=== PATIENT | male | born 1990 | race Two or more races ===

== ENCOUNTER 2024-10-03 16:30 | Inpatient (IN) | payer MEDICAID ==
[~2024-10-03] VITALS: Ht 183.5 cm; Wt 184.2 kg
[2024-10-03 21:15] VITALS: BP 119/79; PULSE 96; RESP 18; TEMP 97.3; O2SAT 99
[2024-10-03] MEDS ORDERED: VALB40CA2 PO (22:44)
[2024-10-03] MEDS ORDERED: CARI1.5C PO (22:44)
[2024-10-03] MEDS ORDERED: magnesium hydroxide 30ml (MOM) UD suspension PO PRN (23:20)
[2024-10-03] MEDS ORDERED: mag hydrox/Alum hydrox/simeth 30ml oral suspension PO PRN (23:20)
[2024-10-04 03:51] VITALS: RESP 18; O2SAT 99
[2024-10-04 07:00] VITALS: RESP 16; O2SAT 99
[2024-10-04] MEDS: NICOTINE POLACRILEX 2 MG LOZENGE BC PRN ×2 (07:37→19:39)
[2024-10-04] MEDS: nicotine 21mg patch - 24 hr TD SCH (07:38)
[2024-10-04 08:00] VITALS: BP 134/78; PULSE 89; RESP 16; TEMP 98.4; O2SAT 99
[2024-10-04] MEDS ORDERED: CARIPRAZINE HYDROCHLORIDE 1.5 MG PO SCH (08:00)
[2024-10-04] MEDS: CARIPRAZINE HYDROCHLORIDE 1.5 MG PO ONE (09:05)
[2024-10-04] MEDS ORDERED: OLANZapine **IM** 10 mg inj. IM PRN (11:30)
[2024-10-04] MEDS: OLANZapine 5mg rapidly disint. tablet PO PRN (13:04)
[2024-10-04 15:36] VITALS: BP 134/78; PULSE 89; RESP 16; TEMP 98.4; O2SAT 99
--- NOTE | 2024-10-04 18:27 | HISTORY AND PHYSICAL-Residence ---
History & Physical Providers to CC Resident Creating Document: SANTOS ROBLES MD ~ History of Present Illness Reason for Admit\Complaint: Tics History of Present Illness Patient was a very poor historian. 34-year-old male with no significant past medical history is [facility] with chief complaint of new onset tics. The patient reported that he has been having involuntary and random movements throughout his body which has a started very recently. He denied any new medications and denies any recent history of fever, chills, headaches, nausea, vomiting. He denied any history of seizures or any neurological disorders. Allergies: Coded Allergies: No Known Allergies (Unverified , 10/03/24) Home Medications Home Medications Active Reported Ingrezza (Valbenazine Tosylate) 40 Mg Capsule 1 Cap PO DAILY 30 Days Vraylar (Cariprazine Hydrochloride) 1.5 Mg Capsule 1 Cap PO DAILY 30 Days Past Medical History Past Medical History Denied any significant medical history. Past Surgical History Surgical History Comment No significant surgical history Family History Family History: Patient reports no known family medical history. Past Social History Social History Comment Lives at home Denied smoking history Denies recreational drug use Denied alcohol use history. ROS ROS As stated above in the HPI, otherwise all systems are reviewed and negative. Exam Vitals: Vital Signs Date Time Temp Pulse Resp B/P (MAP) Pulse Ox O2 Delivery O2 Flow Rate FiO2 10/04/24 15:36 98.4 89 16 134/78 (96) 99 Room Air General: General: Awake and Alert, no acute distress. HEENT: Conjunctiva pink, Sclera clear, Mucus Membranes moist. Neck: Supple without masses and tenderness. Resp: Unlabored. Lungs clear to auscultation bilaterally. Heart: Regular Rate and rhythm, normal S1 and S2 without murmur, rub or gallop. Abdomen: Soft and non tender no organomegaly Extremities: No cyanosis,clubbing or edema. Skin: Warm and Dry. Neurology: Patient having involuntary movements, jerking of the head and bilateral upper extremity for brief moments (lasting secs) during conversation. No loss of consciousness or any other symptoms were noted. Advance Care Planning Advanced Care planning: N/A Additional Plan Tics Dystonia Management per Psychiatry. No acute medical complaints. Follow up with CBC and BMP. Disposition: Hospitalist team we will continue to monitor the patient during the course of his hospitalization as per protocol. Karl Estrada MD Internal Medicine Resident, PGY-3 Date of Service: Oct 04, 2024 Billing Provider: SANTOS ROBLES MD Common Visit Codes: [id number] INP/OBS CARE (MOD) PIOTRADDIE LEIVAKYLIE MENJIVAR, RES Oct 04, 2024 18:27 SANTOS ROBLES MD Oct 08, 2024 15:19
[2024-10-04 19:00] VITALS: RESP 18; O2SAT 97
[2024-10-04 20:00] VITALS: BP 135/76; PULSE 91; RESP 16; TEMP 98.7; O2SAT 96
[2024-10-04] MEDS: benztropine 1mg tablet PO SCH (20:12)
[2024-10-04] MEDS: OLANZapine 5mg rapidly disint. tablet PO SCH (20:14)
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
[2024-10-05 06:51] LABS: MEAN PLATELET VOLUME 8.2 FL (7.4-10.4); RED CELL DISTRIBUTION WIDTH 12.7 % (11.5-14.5)
[2024-10-05 07:00] VITALS: BP 131/82; PULSE 88; RESP 16; TEMP 98.1; O2SAT 99
[2024-10-05 07:27] LABS: CHOL/HDL RATIO 4.2 (0.00-4.99); CREATININE 0.92 MG/DL (0.60-1.10); LDL CHOLESTEROL 97 MG/DL (50-100); TOTAL CARBON DIOXIDE 26.3 MMOL/L (24-32); eCRCL 127 ML/MIN; eGFR > 90 ML/MIN
[2024-10-05 08:00] VITALS: RESP 14
--- NOTE | 2024-10-05 18:51 | PROGRESS NOTE ---
Progress Note Dictate Providers to CC ~ Antibiotic Ordered?: No Objective Vitals Vital Signs Date Time Temp Pulse Resp B/P (MAP) Pulse Ox O2 Delivery O2 Flow Rate FiO2 10/05/24 08:00 14 Room Air 10/05/24 07:00 98.1 88 131/82 (98) 99 Lab Results: 10/05/24 0634 10/05/24 0634 Problem\Assessment\Plan Problems/Diagnosis: (1) Cannabis abuse with psychotic disorder (2) Schizophrenia, acute Psychiatrist's Progress Note Notes FOLLOW UP Vishal Hernandez 33 M Date of : Admit date: 10/04/24 Current length of stay: 2 days HPI: admitted voluntarily for Tics and psychotic symptoms. On admission interview he denied that he has a mental health diagnosis. Tics/movent symptoms started returning 3 weeks ago (early September) at which time he started new mental health medication: Trazodone, Ingrezza, Vraylar. In 2024 he has additionally developed gambling addiction- has gone to the [employer] three times in 2024 and will spend his whole paycheck. Yesterday he shared that he thinks that he may have a porn/sex addiction. Recent psychotic symptoms appear to have worsened in the context of two incidences of THC use, in Mid august he smoked once and then he took a THC drink and his symptoms have been observably worsening since. No thoughts of suicide or self harm. Per fiance he is unable to care for himself, needs a time recorder caregiver to remind him to take his medication, bathe or eating- will have to be convinced by his mother or finance to do these basic tasks, per his fiance he hasnt been working because he cannot think clearly, he has been spending his time pacing around the apartment, smoking cigarettes, has been sleeping minimally, will wake up every hour to smoke cigarettes. He has been sharing with his fiance that the voices in his head have been trying to get to him and wont let him talk there will be moments when he is lucid. Monique that his current affect and tone of voice is not consistent with his typical presentation. When asked about other disorganized or other bizarre behavior he came to his fiance's work asking for the marijuana beverage that he left in the trunk of her car and he wouldnt leave the premises even when she asked him multiple times to leave and that she could get it for him tonight. He will yell at the voices in his head. But there has been no anger externalized towards others. He has shared with her that hear voices but then also will deny it. Moved to [place] 1 years ago, established mental health treatment this summer, had psychotic episode in spring 2023 admitted through [facility], was there for 4-5 days, (was on a hold for grave disability), psychotic symptoms improved with medication, was discharged on haloperidol, and benztropine. 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 Psychiatric History: Outpatient: Has been meeting with a therapist regularly through [facility] Inpatient: - [facility] 2023, [facility] in 2021 (both in context of psychosis) Suicide attempts: denies Self harm history: denies Violence Hx/Legal Hx: denies Substance use hx: marijuana use rare but precipitates acute psychotic symptoms, rare alcohol intake, nicotine daily Historical Psych Medications: Haloperidol, benztropine, clonidine, ingrezza, vraylar, trazodone, olanzapine- was prescribed outpatient up to 15 mg but at that dose didnt seem to improve symptoms, lamotrigine 100 mg- no clear benefit, clonidine, propranolol 10 mg Social Hx: Moved to [place] 1 years ago, His dad when he was 30 which was a huge loss. Family Hx: father addiction (lead to premature d/t medical comorbidities) Current Psychosocial Dynamics: Moved to [place] 1 years ago, lives with firoxann (been together for 12 years) and fiances brother, has had trouble consistently working. - Todays Assessment Per nursing staff slept 2 hours last night, was agreeable to taking HS olanzapine, has been requesting to leave the unit but is unable to articulate or develop a coherent plan to follow through. Observed staring blankly in the hallway, preoccupied and was not responsive when approached by staff. Staff estimates he had 5-6+ pitchers of water yesterday (up to 4800 ml) Interviewed monique: who observes he is closer to his baseline personality, she thinks he is still confused at times, still appears preoccupied. Today he states the tics have improved a little bit. Status: in the process of attaining 5150 Suicide/Self Harm Risk: low Violence Risk: low Elopement Risk: High Fall risk: low - Medications: Olanzapine 10 mg po QHS Trazodone 100 mg po qhs (not effective for sleep) Nicotine patch 21 mg TD Recent PRNS: Olanzapine 5 mg - last administered 10/05/24 at 0700 - Side Effects: concern that Tics have worsened in severity since starting medication. AIMs: 3-muscle spasms in neck (does not appear to be consistent with TD) Dystonic reaction: Cervical dystonia- muscle spasms in neck, he additionally reports a history of tics but these symptoms worsened in the context of restarting antipsychotic medication and a Vmat 2 inhibitor - Review of Psychiatric Symptoms: Mood: states he is feeling good Suicide/self-harm: denies Sleep: per nursing staff slept two hours, he states he slept good but it was only for two hours, he states there is no concern with his sleep pattern Appetite: states he ate breakfast, concern for over consumption of water Energy: adequate, states he is lazy in general Anxiety: denies anxiety Irritability: denies Homicidal/Anger: denies today Hallucinations/Paranoia: denies, states he is at his baseline level of thinking and the only concern he has for his mental health the tics Trauma symptoms: hx of trauma Symptoms related to substance withdrawal: nicotine patch has been effective for cigarettes - Mental Status Evaluation - General Appearance: wearing green hospital scrubs, adequate hygiene. Eye contact: consistent with social norms Demeanor: guarded, does not appear fully aware of their surroundings Orientation: to person, place, time, situation Speech: Appropriate rate/rhythm, poverty of speech Psychomotor Activity: tense, agitated at times, Abnormal Body Movements: Cervical dystonia Gait: steady Mood: good Affect: blunted Suicidality: denies suicidal ideation Homicidally: denies Thought content: paranoia Thought process: disorganized/poverty of thought Thought perceptions: no perceptual disorder reported Memory: possible impairment Attention:/preoccupied Insight: poor, is not accepting having a mental health problem that requires treatment Judgment: limited - Review of Physical Systems: Denies malaise, other flu like symptoms Denies falls, fatigue, weakness, confusion, dizziness, memory loss Denies tingling/numbness, tremor Denies SOB, chest pain, palpitations, fainting Denies nausea, diarrhea, constipation Denies chronic pain All other systems reviewed negative Current Medical Problems: none noted Medical History Allergies: No known allergies Cardiac HX: Denies TBI Hx: denies Seizure Hx: denies [place] Hx: denies - Suicidality: Ideation Treatment - Diagnoses Schizoaffective disorder r/o psychogenic polydipsia (PPD)-exceeding 3 liters daily r/o substance induce psychosis from cannabis use Cervical dystonia r/o Tic disorder - Assessment Vishal is a 33 male who presents for further evaluation and treatment of schizoaffective disorder, dystonia, has historically been diagnosed with schizoaffective disorder. He took olanzapine, trazodone and benadryl and still only attained approximately 2 hours of sleep last night. Will increase olanzapine to further target psychotic symptoms and sleep loss consistent with a manic presentation. Will increase benadryl to further address sleep. Will discontinue trazodone as it is an antidepressant which could be potentiating tk. Marijuana appears to be a vinson contributing factor for psychotic decompensation, previous hospitalizations appear to correlate with marijuana use. It appears that onset of psychotic symptoms did not correlate with substance use. Was minimally responsive to interview questions today due to the severity of his psychotic symptoms including suspiciousness, preoccupation and lack of attention, irritability and agitation around wanting to leave the unit, majority of information was attained through interviewing his fiance. Will increase cogentin as presentation today appears consistent with dystonia, he reported some improvement in movement disorder since starting cogentin yesterday, per history movement symptoms have worsened since starting vmat 2 inhibitor. Discussed benefit of a cnc cutting operator plan of transitioning to an antipsychotic medication that can be administered as an DAILY as he struggles to take medication consistently which could be contributing to his recurrent hospitalizations for psychosis. It may be worth considering augmenting with a mood stabilizer like depakote at if insomnia persists despite medication changes made today. - Safety risk: low risk of imminent self-harm, moderate risk of externalized violent behaviors due to severity of psychotic symptoms, high risk for elopement due to severity of psychotic symptoms Plan Start fluid restriction- no more than 4 pitchers of water a day (for a total fluid intake not to exceed 3200 ml) Increase olanzapine from 10 to 15 mg ODT qhs for primary treatment of schizoaffective disorder acute psychosis Continue olanzapine 5 mg ODT Q6 as needed for agitation/psychotic or manic symptoms (like insomnia) Continue olanzapine 5 mg IM Q8 as needed for acute agitation Increase benztropine 1 mg po BID for dystonia Consider augmenting with a mood stabilizer like depakote at HS if insomnia persists despite medication changes made today. 5150 hold for grave disability Discontinue Trazodone 100 mg po qhs (not effective for insomnia- could be potentiating manic symptoms) Continue Benadryl q6 for EPS or insomnia Continue Q15 min checks Continue Groups/Milieu Engagement Discharge Plan: Has an appointment with a psychiatrist in [facility] on October 26, Has a follow up with psych BENJAMÍN on October 09, Jigar Bynumzabeth vinson pulmonary care nurse, please contact for discharge or any other logistics Katarzynaroxann would like to be an advocate for him for any related court/legal situations. Spent approximately 90 minutes reviewing records and test results, assessing and treatment planning, completing care coordination and documenting the encounter. Discussed risks, including possible adverse effects, and benefits of treatment recommendations including no treatment. Voice recognition software may have been used to dictate this note. There may be errors due to use of such software. Reporting of serious errors is appreciated. CODING VISIT-PSYCHIATRY Date of Service: Oct 05, 2024 Billing Provider: MARISSA MAJOR DNP Psych Common Visit Codes: [id number] INP/OBS CARE(High) MARISSA MAJOR DNP Oct 05, 2024 18:51
[2024-10-05 19:00] VITALS: RESP 16; O2SAT 97
[2024-10-05 20:00] VITALS: BP 142/93; PULSE 96; RESP 16; TEMP 98.3; O2SAT 97
[2024-10-05] MEDS: benztropine 1mg tablet PO SCH (20:02)
[2024-10-05] MEDS: OLANZapine 5mg rapidly disint. tablet PO SCH (20:02)
[2024-10-06 07:00] VITALS: RESP 16; O2SAT 97
[2024-10-06] MEDS: NICOTINE POLACRILEX 2 MG LOZENGE BC PRN (07:41)
[2024-10-06 08:00] VITALS: BP 137/83; PULSE 100; RESP 16; TEMP 98.2; O2SAT 97
--- NOTE | 2024-10-06 08:46 | PROGRESS NOTE ---
Daily Progress Note Providers to CC No new complaint today, resting comfortably in the bed ~ Central Line/PICC still needed: No Comer-Non Protocol Comer Indications Met/Not Met: F/C Indications Not Met Antibiotic Timeout Antibiotic Ordered?: No MRSA Education MRSA Education Provided to pt: No Subjective As above Objective Vital Signs Date Time Temp Pulse Resp B/P (MAP) Pulse Ox O2 Delivery O2 Flow Rate FiO2 10/06/24 08:00 98.2 100 16 137/83 (101) 97 Room Air Vital signs, stable ,afebrile. Pulse Oximetry reflects adequate oxygenation. BMI is 26, weight 87 kg General: well developed, well nourished. Awake , alert, and oriented x4, resting comfortably in the bed, in no acute distress . Skin: Warm, dry, no pallor, no rash or petechiae. HEENT: Atraumatic, normocephalic, EOMI, anicteric sclera B; pink conjunctiva; PERRLA, normal oropharynx, moist oral and nasal mucosa. Tympanic membrane , nose , throat clear. Neck: Trachea midline. Supple, full range of motion, no JVD, bruit , hepatojugular reflex , lymphadenopathy or masses, or other lesions Cardiac: Regular rhythm, regular rate no murmurs, rubs, or gallops. Normal S1 and S2, no S3 noticed. PMI is normal. Respiratory: Equal breath sounds bilaterally, no tachypnea; lungs clear to auscultation bilaterally, no wheezing ,rub or rales, or crackles. Chest wall is symmetric and without deformity. No signs of trauma. Chest wall is nontender. No signs of respiratory distress. Resonance is normal upon percussion bilaterally. Gastrointestinal: Abdomen symmetric, non-distended, soft, non-tender, normal bowel sounds x4 quadrant, normoactive, no hepatosplenomegaly , no masses , no bruit, no flank pain bilaterally. No voluntary guarding, rebound, or rigidity. No tenderness to percussion. No pulsatile masses. Equal femoral pulses. No Ballard's sign or McBurney point tenderness. Back; no CVA tenderness bilaterally, no deformities. Neck and back are without deformity as well. No tenderness noted on palpation of the spinous processes. Spinous processes are midline. Cervical, thoracic, and lumbar paraspinal muscles are not tender and are without spasm. : normal external genitalia, without lesions, swelling, masses or tenderness. Musculoskeletal: Extremities, normal range of motion, non-tender, muscle strength 5/5 x 4. Negative Homans signs bilaterally on lower extremity. Distal pulses full symmetrical, no clubbing, cyanosis , edema. Neurological: Speech is clear, alert, and oriented x 4. No motor or sensory deficit, deep tendon reflexes normal, cerebellar intact. Cranial nerves II-XII intact. Psych: Alert and or appropriate, normal affect. Vascular: Good distal pulses, which are equal x4; capillary refill less than 2 seconds. Lymphatic, no lymphadenopathy. Result Diagram: 10/05/2434 10/05/2434 Problem\Assessment\Plan Assessment/ Plan Tics Dystonia Management per Psychiatry. CBC and BMP. , completed, reviewed. Disposition: Hospitalist team we will continue to monitor the patient during the course of his hospitalization as per protocol. Sepsis Screening Reassessment Date: Oct 06, 2024 Date of Service: Oct 06, 2024 Billing Provider: MARIAM ROME MD Common Visit Codes: [id number] INP/OBS CARE(LOW) MARIAM ROME MD Oct 06, 2024 08:46
--- NOTE | 2024-10-06 10:07 | PROGRESS NOTE ---
Progress Note Dictate Providers to CC ~ Central Line/PICC still needed: N\\A Antibiotic Ordered?: No MRSA Education MRSA Education Provided to pt: No Objective Vitals Vital Signs Date Time Temp Pulse Resp B/P (MAP) Pulse Ox O2 Delivery O2 Flow Rate FiO2 10/06/24 08:00 98.2 100 16 137/83 (101) 97 Room Air Lab Results: 10/05/24 0634 10/05/24 0634 Counseling Services Smoking & Tobacco Cessation: > 10 Minutes Psychiatrist's Progress Note Date of Service: Oct 06, 2024 Notes CHART REVIEW Arrived with jahaira from [place]. Voluntary status for work up on new dystonic reaction to meds. Assessment done but pt denies any mental health history or symptoms. He says he only has tics and seasonal asthma. His transfer paperwork does say he has schizotypal bipolar history, and dystonia related to new medications. For me, he denies any mental health history, any family history, any medications. Denies hallucinations, SI/HI, or depression. Says his only obsession is sex, and he is never triggered. Both Pt and jahairae report bizarre and dangerous behaviors. States he was admitted for Tics and per his fiance he has not been thinking clearly. States they gave him benadryl. Per Fiance and patient, they both report no concern for bizarre dangerous behaviors. Sometimes will have strong vocal tics in the context of his mind not letting him speak. The patient denies that he has a mental health diagnosis. At the end of the month on october 26 he has an appointment with a psychiatrist in [facility]. Used to been treated by a psychiatrist in [facility] in [place]. Moved to [place] 1 years ago and no mental health treatment, had some "episodes" in May 2023 lots of ED visit, then was admitted through [facility], was admitted June 2023 was there for 4-5 days, (was a three day hold minimum)- jahaira reports that the medication helped him maintain a mental clarity for a while- haloperidol, benztropine, and then clonidine also helped with the Tics. ASSESSMENT The patient was interviewed in observation room. The patient was actively ambulating in hallway after visitation. The patient endorses "okay." Despite the patient endorsing he is okay the patient appeared extremely anxious, agitated and irritable. The patient was noted having difficulty finding words and starting blurting random things out at intervals (oh shit, fuck). The patient is stable no acute distress noted. The patient presents as guarded,extremely anxious, agitated and irritable, and disengaged during session. Per staff report patient is medication compliant. Per staff report patient was elevated at start of shift but has since calmed himself down with PRNs and he seemed to escalate again during visitation with his girlfriend. Per staff report pt became extremely loud and disruptive to other patients and visitors, yelling "Shit!" and nearly constantly loudly coughing and clearing his throat. Pt was asked to leave the dining room. Pt was cooperative with leaving the dining room. Will continue daily assessment and adjusting treatment as needed. Closely monitor behavior and response to medication during hospitalization. Speech: Impoverished Eye Contact: Intense Motor Activity: Other (DYSTONIA) Affect: Other (Blunted) Mood: Anxious, Irritable Orientation Impairment: None Memory Impairment: None Attention: Distracted Hallucinations: None Other: None Suicidality: None Homicidality: None Delusions: Paraniod Behavior: Guarded, Agitated, Bizarre Insight: Poor Judgment: Poor Treatment Increase OLANZAPINE 20 MG P.O. Q.H.S.-primary treatment of schizoaffective disorder acute psychosis OLANZAPINE 5 MG P.O. Q.6 PRN-agitation/psychotic or manic symptoms (like insomnia) BENZTROPINE 1 MG P.O. B.I.D.-dystonia BENADRYL 50 MG P.O. Q.6 PRN HYDROXYZINE 50 MG P.O. Q.6 PRN Fluid restriction- no more than 4 pitchers of water a day (for a total fluid intake not to exceed 3200 ml) 5150 HOLD-DTS- Patient is unable to formulate a plan to safety due to the severity of their mental illness. We are still titrating medications to an effective dose while maintaining a therapeutic environment to prevent decompensation and readmission. Monitoring by Staff, Milieu, Group, and Individual counseling as needed -- According to the [place] Suicide Assessment the above named patient is on Q15 MINUTE CHECKS. Total time spent 55 minutes on REVIEW OF Clinical notes [X ] RN notes [X] PCT documentation [X] SW notes Labs [ X] Medications [X] Care trends/care activity [X] Vitals [X] DISCUSSION WITH photogravure press operator [X] Staff SW Treatment Team Voice recognition software may have been used to dictate this note. There may be errors due to use of such software. Reporting of serious errors is appreciated. Discharge UNSURE AT THIS TIME. DISCHARGE HOME ONCE STABLE. CODING VISIT-PSYCHIATRY Date of Service: Oct 06, 2024 Billing Provider: JOE BILLINGSLEY APRN Psych Common Visit Codes: [id number] INP/OBS CARE(Mod) JOE BILLINGSLEY APRN Oct 06, 2024 10:07
[2024-10-06 20:00] VITALS: BP 144/73; PULSE 111; RESP 16; TEMP 98.8; O2SAT 97
[2024-10-06] MEDS: OLANZapine 5mg rapidly disint. tablet PO SCH (20:13)
[2024-10-06 21:13] VITALS: BP 144/73; PULSE 111; RESP 16; TEMP 98.8; O2SAT 97
[2024-10-07 07:00] VITALS: RESP 18; O2SAT 98
[2024-10-07 08:00] VITALS: BP 133/71; PULSE 74; RESP 18; TEMP 97.6; O2SAT 98
[2024-10-07] MEDS: OLANZapine 5mg rapidly disint. tablet PO ONE (08:09)
--- NOTE | 2024-10-07 15:13 | PROGRESS NOTE ---
Progress Note Dictate Providers to CC ~ Central Line/PICC still needed: N\\A Antibiotic Ordered?: No MRSA Education MRSA Education Provided to pt: No Objective Vitals Vital Signs Date Time Temp Pulse Resp B/P (MAP) Pulse Ox O2 Delivery O2 Flow Rate FiO2 10/07/24 08:00 97.6 74 18 133/71 (91) 98 Room Air Lab Results: 10/05/24 0634 10/05/24 0634 Psychiatrist's Progress Note Date of Service: Oct 07, 2024 Notes CHART REVIEW Arrived with jahaira from [place]. Voluntary status for work up on new dystonic reaction to meds. Assessment done but pt denies any mental health history or symptoms. He says he only has tics and seasonal asthma. His transfer paperwork does say he has schizotypal bipolar history, and dystonia related to new medications. For me, he denies any mental health history, any family history, any medications. Denies hallucinations, SI/HI, or depression. Says his only obsession is sex, and he is never triggered. Both Pt and jahairae report bizarre and dangerous behaviors. States he was admitted for Tics and per his fiance he has not been thinking clearly. States they gave him benadryl. Per Fiance and patient, they both report no concern for bizarre dangerous behaviors. Sometimes will have strong vocal tics in the context of his mind not letting him speak. The patient denies that he has a mental health diagnosis. At the end of the month on october 26 he has an appointment with a psychiatrist in [facility]. Used to been treated by a psychiatrist in [facility] in [place]. Moved to [place] 1 years ago and no mental health treatment, had some "episodes" in May 2023 lots of ED visit, then was admitted through [facility], was admitted June 2023 was there for 4-5 days, (was a three day hold minimum)- jahaira reports that the medication helped him maintain a mental clarity for a while- haloperidol, benztropine, and then clonidine also helped with the Tics. ASSESSMENT The patient was interviewed in observation room. The patient was actively ambulating in hallway. The patient endorses "Okay." The patient endorses no worsening mental health symptoms. The patient endorses adequate sleep and food intake. The patient is stable no acute distress noted. The patient presents as less anxious, less agitated and less irritable, and engaged during session. Per staff report patient is medication compliant. Per staff report the occasionally yelling out shit shit fuck fuck. Will continue daily assessment and adjusting treatment as needed. Closely monitor behavior and response to medication during hospitalization. Appearnace: Other Speech: Impoverished Eye Contact: Other (INTERMITTENT) Motor Activity: Normal Affect: Constricted Orientation Impairment: None Memory Impairment: None Attention: Normal Hallucinations: None Other: None Suicidality: None Homicidality: None Delusions: None Behavior: Guarded Insight: Poor Judgment: Poor Treatment OLANZAPINE 20 MG P.O. Q.H.S.-primary treatment of schizoaffective disorder acute psychosis OLANZAPINE 5 MG P.O. Q.6 PRN-agitation/psychotic or manic symptoms (like insomnia) BENZTROPINE 1 MG P.O. B.I.D.-dystonia BENADRYL 50 MG P.O. Q.6 PRN HYDROXYZINE 50 MG P.O. Q.6 PRN Fluid restriction- no more than 4 pitchers of water a day (for a total fluid intake not to exceed 3200 ml) 5150 HOLD-DTS- Patient is unable to formulate a plan to safety due to the severity of their mental illness. We are still titrating medications to an effective dose while maintaining a therapeutic environment to prevent decompensation and readmission. Monitoring by Staff, Milieu, Group, and Individual counseling as needed -- According to the [place] Suicide Assessment the above named patient is on Q15 MINUTE CHECKS. Total time spent 30 minutes on REVIEW OF Clinical notes [X ] RN notes [X] PCT documentation [X] SW notes Labs [ X] Medications [X] Care trends/care activity [X] Vitals [X] DISCUSSION WITH maintenance pipefitter [X] Staff SW Treatment Team Voice recognition software may have been used to dictate this note. There may be errors due to use of such software. Reporting of serious errors is appreciated. Discharge UNSURE AT THIS TIME. DISCHARGE HOME ONCE STABLE. CODING VISIT-PSYCHIATRY Date of Service: Oct 07, 2024 Billing Provider: JOE BILLINGSLEY APRN Psych Common Visit Codes: [id number] INP/OBS CARE(Mod) JOE BILLINGSLEY APRN Oct 07, 2024 15:13
[2024-10-07] MEDS: benztropine 1mg tablet PO SCH (17:40)
[2024-10-07 19:00] VITALS: RESP 18; O2SAT 98
[2024-10-07 20:00] VITALS: BP 135/90; PULSE 115; RESP 18; TEMP 98.9; O2SAT 98
[2024-10-08 07:00] VITALS: RESP 16; O2SAT 98
[2024-10-08 08:00] VITALS: BP 124/86; PULSE 101; RESP 16; TEMP 98.9; O2SAT 98
--- NOTE | 2024-10-08 14:14 | PROGRESS NOTE ---
Daily Progress Note Providers to CC ~ new complaint today resting comfortably in the bed Central Line/PICC still needed: No Comer-Non Protocol Comer Indications Met/Not Met: F/C Indications Not Met Antibiotic Timeout Antibiotic Ordered?: No MRSA Education MRSA Education Provided to pt: No Subjective As above Objective Vital Signs Date Time Temp Pulse Resp B/P (MAP) Pulse Ox O2 Delivery O2 Flow Rate FiO2 10/08/24 08:00 98.9 101 16 124/86 (99) 98 Room Air Vital signs, stable ,afebrile. Pulse Oximetry reflects adequate oxygenation, tachycardic General: well developed, well nourished. Awake , alert, and oriented x4, resting comfortably in the bed, in no acute distress . Skin: Warm, dry, no pallor, no rash or petechiae. HEENT: Atraumatic, normocephalic, EOMI, anicteric sclera B; pink conjunctiva; PERRLA, normal oropharynx, moist oral and nasal mucosa. Tympanic membrane , nose , throat clear. Neck: Trachea midline. Supple, full range of motion, no JVD, bruit , hepatojugular reflex , lymphadenopathy or masses, or other lesions Cardiac: Tachycardic, Regular rhythm, no murmurs, rubs, or gallops. Normal S1 and S2, no S3 noticed. PMI is normal. Respiratory: Equal breath sounds bilaterally, no tachypnea; lungs clear to auscultation bilaterally, no wheezing ,rub or rales, or crackles. Chest wall is symmetric and without deformity. No signs of trauma. Chest wall is nontender. No signs of respiratory distress. Resonance is normal upon percussion bilaterally. Gastrointestinal: Abdomen symmetric, non-distended, soft, non-tender, normal bowel sounds x4 quadrant, normoactive, no hepatosplenomegaly , no masses , no bruit, no flank pain bilaterally. No voluntary guarding, rebound, or rigidity. No tenderness to percussion. No pulsatile masses. Equal femoral pulses. No Ballard's sign or McBurney point tenderness. Back; no CVA tenderness bilaterally, no deformities. Neck and back are without deformity as well. No tenderness noted on palpation of the spinous processes. Spinous processes are midline. Cervical, thoracic, and lumbar paraspinal muscles are not tender and are without spasm. : normal external genitalia, without lesions, swelling, masses or tenderness. Musculoskeletal: Extremities, normal range of motion, non-tender, muscle strength 5/5 x 4. Negative Homans signs bilaterally on lower extremity. Distal pulses full symmetrical, no clubbing, cyanosis , edema. Neurological: Speech is clear, alert, and oriented x 4. No motor or sensory deficit, deep tendon reflexes normal, cerebellar intact. Cranial nerves II-XII intact. Psych: Alert and or appropriate, normal affect. Vascular: Good distal pulses, which are equal x4; capillary refill less than 2 seconds. Lymphatic, no lymphadenopathy. Result Diagram: 10/05/2434 10/05/24633 Problem\Assessment\Plan Assessment/ Plan Tachyarrhythmia, EKG, echocardiography, additional lab work pending Tics Dystonia Management per Psychiatry. CBC and BMP. , completed, reviewed. Disposition: Hospitalist team we will continue to monitor the patient during the course of his hospitalization as per protocol. Sepsis Screening Reassessment Date: Oct 08, 2024 Date of Service: Oct 08, 2024 Billing Provider: MARIAM ROME MD Common Visit Codes: [id number] INP/OBS CARE(MOD) MARIAM ROME MD Oct 08, 2024 14:14
--- NOTE | 2024-10-08 14:51 | RADIOLOGY REPORT ---
EXAM: DI CHEST,SINGLE VIEW Indication: sob Technique: Single frontal view of the chest was obtained Comparison: None FINDINGS: Lines and Tubes: None Lungs: No focal consolidation. Pleura: No effusion. No pneumothorax. Cardiomediastinal contours: Unremarkable Bones: No acute osseous abnormality. Postsurgical changes are visualized in the left clavicle. IMPRESSION: No acute cardiopulmonary disease.
--- NOTE | 2024-10-08 16:45 | ELECTROCARDIOGRAPH REPORT ---
[facility] Test Date: 2024-10-08 Test Time: 16:32:46 Pat Name: JAMES PALMER Department: 3rd FLOOR PCU Room: [facility] A Gender: M [employer] Worker: : 1990 Requested By: MARIAM ROME Order Number: [id number] Reading MD: Dr. NNEKA Ireland Measurements Intervals [place] Rate: 96 P: 43 MO: 144 QRS: 67 QRSD: 98 T: 58 QT: 337 QTc: 426 Interpretive Statements Sinus rhythm ST elev, probable normal early repol pattern Electronically Signed On 10-08-2024 16:46:[address] NNEKA Ireland Please click the below link to view image of tracing.
[2024-10-08 17:57] LABS: LEUKOCYTE ESTERASE ,URINE NEGATIVE (Neg); NITRITES, URINE NEGATIVE (Neg); OCCULT BLOOD,URINE NEGATIVE (Neg)
[2024-10-08 18:05] LABS: UA COLLECTION TYPE CLN CATCH MIDSTREAM
[2024-10-08 18:23] LABS: URINE AMPHETAMINE SCREEN NEGATIVE (Neg); URINE BARBITUATE SCREEN NEGATIVE (Neg); URINE BENZODIAZEPINES SCREEN NEGATIVE (Neg); URINE CANNABINOID SCREEN NEGATIVE (Neg); URINE COCAINE SCREEN NEGATIVE (Neg); URINE METHADONE SCREEN NEGATIVE (Neg); URINE OPIATE SCREEN NEGATIVE (Neg); URINE PHENCYCLIDINE SCREEN NEGATIVE (Neg)
[2024-10-08 18:42] LABS: PHOSPHORUS 4.1 MG/DL (2.3-4.5)
[2024-10-08 19:00] VITALS: RESP 18; O2SAT 99
[2024-10-08 20:00] VITALS: BP 130/95; PULSE 109; RESP 18; TEMP 98.6; O2SAT 99
[2024-10-08] MEDS: PALIPERIDONE 3 MG TAB.ER.24 PO SCH (20:11)
[2024-10-09 07:00] VITALS: RESP 16; O2SAT 98
[2024-10-09 08:00] VITALS: BP 110/60; PULSE 90; RESP 16; TEMP 98.5; O2SAT 98
--- NOTE | 2024-10-09 08:35 | PROGRESS NOTE ---
Progress Note Dictate Providers to CC ~ Antibiotic Ordered?: No Objective Vitals Vital Signs Date Time Temp Pulse Resp B/P (MAP) Pulse Ox O2 Delivery O2 Flow Rate FiO2 10/08/24 20:00 98.6 109 18 130/95 (107) 99 Room Air Lab Results: 10/05/24 0634 10/05/24 0634 Problem\Assessment\Plan Problems/Diagnosis: (1) Cannabis abuse with psychotic disorder (2) Schizophrenia, acute Psychiatrist's Progress Note Notes FOLLOW UP Vishal Hernandez 33 M Date of : Admit date: 10/04/24 Current length of stay: 2 days HPI: admitted voluntarily for Tics and psychotic symptoms. Tics/movent symptoms started returning 3 weeks ago (early September) at which time he started new mental health medication: Trazodone, Ingrezza, Vraylar. He has additionally developed gambling addiction- has gone to the [employer] three times in 2024 and will spend his whole paycheck. Shared that he thinks that he may have a porn/sex addiction. Recent psychotic symptoms appear to have worsened in the context of two incidences of THC use. Per fiance he is unable to care for himself, needs a aircraft time clerk caregiver to remind him to take his medication, bathe or eating- will have to be convinced by his mother or finance to do these basic tasks, per his fiance he hasnt been working because he cannot think clearly, he has been spending his time pacing around the apartment, smoking cigarettes, has been sleeping minimally, will wake up every hour to smoke cigarettes. He has been sharing with his fiance that the voices in his head have been trying to get to him and wont let him talk there will be moments when he is lucid. Fiance that his current affect and tone of voice is not consistent with his typical presentation. He will yell at the voices in his head. But there has been no anger externalized towards others. Psychiatric History: Outpatient: Has been meeting with a therapist regularly through [facility] Inpatient: [facility]- wing 2023, fernando jennings in 2021 (both in context of psychosis) Moved to [place] 1 years ago, established mental health treatment this summer, had psychotic episode in spring 2023 admitted through [facility], was there for 4-5 days, (was on a hold for grave disability), psychotic symptoms improved with medication, was discharged on haloperidol, and benztropine. 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 Suicide attempts: denies Self harm history: denies Violence Hx/Legal Hx: denies Substance use hx: marijuana use rare but precipitates acute psychotic symptoms, rare alcohol intake, nicotine daily Historical Psych Medications: Haloperidol, benztropine, clonidine, ingrezza, vraylar, trazodone, olanzapine- was prescribed outpatient up to 15 mg but at that dose didnt seem to improve symptoms, lamotrigine 100 mg- no clear benefit, clonidine, propranolol 10 mg Social Hx: Moved to [place] 1 years ago, His dad when he was 30 which was a huge loss. Family Hx: father addiction (lead to premature d/t medical comorbidities) Current Psychosocial Dynamics: Moved to [place] 1 years ago, lives with jahaira (been together for 12 years) and [place] brother, has had trouble consistently working. Course of treatment: Started on olanzapine 10 mg po qhs, trazodone 100 mg and 50 mg of benadryl and slept 2 hours his first night after admission, concern for polydipsea- was noted to be consuming more than 4800 ml of water a day, olanzapine increased to 15 mg at HS on 09/04, Tuesday, 09/05 he continued to present as anxious and agitated. Was having trouble finding words and would flurt things out at random, shit, fuck He escalted while visiting with his firoxann, olanzapine was further increase to 20 mg po qhs. Evening of 09/06 was observed screaming and cursing, having facial distortions with tick like movements, Trends of elevated HR and Blood pressures. Todays Assessment Per nursing staff he slept 8 hours last night, but he woke up significantly agitated was yelling, was sitting in his room cursing repeatedly shit shit fuck fuck and was grunting, very upset about being on the unit. Per jahaira Granado: he still seems confused, is upset about being on the unit, sates he feels very frustrated because he is on the unit, concerned that he is still confused, was unable to recall the dates today. The loud outbursts of vocal tics have worsened. On assessment today: A&4 x4, states the tics are occurring less frequently, states he has been reading the bible, when asked about the psychotic symptoms he denies that currently or in the past he has psychotic symptoms. States he dosnt think medication for treatment of psychotic symptoms are necessary Status: Suicide/Self Harm Risk: low Violence Risk: low Elopement Risk: High Fall risk: low - Medications: Olanzapine 20 mg po QHS Cogentin 2 mg po BID no meaningful improvement in TICs/dystonia- Recent PRNS: Benadryl 50 mg po prn- am 8- Olanzapine 5 mg po prn agitation/psychosis- am 8/4 Hydroxyzine 50 mg po prn anxiety- am 8 - Side Effects: concern that Tics have worsened in severity since starting medication. AIMs: 3-muscle spasms in neck (does not appear to be consistent with TD) Dystonic reaction: Cervical dystonia- muscle spasms in neck, he additionally reports a history of tics but these symptoms worsened in the context of restarting antipsychotic medication and a Vmat 2 inhibitor - Review of Psychiatric Symptoms: Mood: tired denies feeling depressed. Suicide/self-harm: denies Sleep: 8.5 hours, Appetite: states he ate breakfast, concern for over consumption of water Energy: adequate, states he is lazy in general Anxiety: occasional anxiety Irritability: denies Homicidal/Anger: denies today Hallucinations/Paranoia: denies, states he is at his baseline level of thinking and the only concern he has for his mental health the tics Trauma symptoms: hx of trauma Symptoms related to substance withdrawal: endorses nicotine withdrawal, nicotine patch has been effective for cigarettes - Mental Status Evaluation - General Appearance: wearing green hospital scrubs, adequate hygiene. Eye contact: consistent with social norms Demeanor: guarded, does not appear fully aware of their surroundings Orientation: to person, place, time, situation Speech: Appropriate rate/rhythm, poverty of speech Psychomotor Activity: tense, agitated at times, Abnormal Body Movements: Cervical dystonia Gait: steady Mood: good Affect: blunted Suicidality: denies suicidal ideation Homicidally: denies Thought content: paranoia Thought process: disorganized/poverty of thought Thought perceptions: no perceptual disorder reported Memory: possible impairment Attention:/preoccupied Insight: poor, is not accepting having a mental health problem that requires treatment Judgment: limited - Review of Physical Systems: Denies malaise, other flu like symptoms Denies falls, fatigue, weakness, confusion, dizziness, memory loss Denies tingling/numbness, tremor Denies SOB, chest pain, palpitations, fainting Denies nausea, diarrhea, constipation Denies chronic pain All other systems reviewed negative Current Medical Problems: none noted Medical History Allergies: No known allergies Cardiac HX: Denies TBI Hx: denies Seizure Hx: denies [place] Hx: denies - Treatment Diagnoses Schizoaffective disorder r/o psychogenic polydipsia (PPD)-exceeding 3 liters daily r/o substance induce psychosis from cannabis use Cervical dystonia r/o TD - Assessment Vishal is a 33 male who presents for further evaluation and treatment of schizoaffective disorder, dystonia, has historically been diagnosed with schizoaffective disorder. It appears that onset of psychotic symptoms did not correlate with substance use and his presentation is congruent with a primary psychotic disoder. He took olanzapine over the weekend with minimal symptom improvement, up to 30 mg total per day as well as other anti anxiety medication and is still experiencing episodic agitation due to the voices. Will transition to paliperidone ER with aim that he can start DAILY before discharge. Great concern for risk of EPS, will monitor closely. Prn lorazepam and clonidine provided to address anxiety, agitation and tics. Discussed benefit of a long filler cigar roller machine plan of transitioning to an antipsychotic medication that can be administered as an DAILY as he struggles to take medication consistently which could be contributing to his recurrent hospitalizations for psychosis. It may be worth considering augmenting with a mood stabilizer like depakote at if insomnia persists despite medication changes made today. Marijuana appears to be a vinson contributing factor for psychotic decompensation, previous hospitalizations appear to correlate with marijuana use, and recommend total cessation of substances after discharge. - Safety risk: low risk of imminent self-harm, moderate risk of externalized violent behaviors due to severity of psychotic symptoms, high risk for elopement due to severity of psychotic symptoms Plan Start lorazepam 1 mg up to BID for acute agitation Start clonidine 0.1 mg prn TID for anxiety/tics Start paliperidone ER 6 mg po qhs for acute psychosis Discontinue olanzapine from 10 to 15 mg ODT qhs for primary treatment of schizoaffective disorder acute psychosis Discontinue olanzapine 5 mg ODT Q6 as needed for agitation/psychotic or manic symptoms (like insomnia) Discontinue olanzapine 5 mg IM Q8 as needed for acute agitation Continue benztropine 2 mg po BID for dystonia Continue fluid restriction- no more than 4 pitchers of water a day (for a total fluid intake not to exceed 3200 ml) 5250 hold for grave disability Continue Benadryl q6 for EPS or insomnia Continue Q15 min checks Continue Groups/Milieu Engagement Discharge Plan: Has an appointment with a psychiatrist in [facility] on October 26, Has a follow up with psych BENJAMÍN on October 09, Jigar Bynumzabeth vinson nanny caregiver, please contact for discharge or any other logistics Fiance would like to be an advocate for him for any related court/legal situations. Spent approximately 90 minutes reviewing records and test results, assessing and treatment planning, completing care coordination and documenting the encounter. Discussed risks, including possible adverse effects, and benefits of treatment recommendations including no treatment. Voice recognition software may have been used to dictate this note. There may be errors due to use of such software. Reporting of serious errors is appreciated. CODING VISIT-PSYCHIATRY Date of Service: Oct 08, 2024 Billing Provider: MARISSA MAJOR DNP Psych Common Visit Codes: [id number] INP/OBS CARE(Mod) MARISSA MAJOR DNP Oct 09, 2024 08:35
--- NOTE | 2024-10-09 15:48 | PROGRESS NOTE ---
Progress Note Dictate Providers to CC ~ Antibiotic Ordered?: No Objective Vitals Vital Signs Date Time Temp Pulse Resp B/P (MAP) Pulse Ox O2 Delivery O2 Flow Rate FiO2 10/09/24 08:00 98.5 90 16 110/60 (77) 98 Room Air Lab Results: 10/05/24 0634 10/05/24 0634 Problem\Assessment\Plan Problems/Diagnosis: (1) Cannabis abuse with psychotic disorder (2) Schizophrenia, acute Psychiatrist's Progress Note Notes FOLLOW UP Vishal Hernandez 33 M Date of : Admit date: 10/04/24 Current length of stay: 2 days HPI: admitted voluntarily for Tics and psychotic symptoms. Tics/movent symptoms started returning 3 weeks ago (early September) at which time he started new mental health medication: Trazodone, Ingrezza, Vraylar. He has additionally developed gambling addiction- has gone to the [employer] three times in 2024 and will spend his whole paycheck. Shared that he thinks that he may have a porn/sex addiction. Recent psychotic symptoms appear to have worsened in the context of two incidences of THC use. Per fiance he is unable to care for himself, needs a aeronautical design engineer caregiver to remind him to take his medication, bathe or eating- will have to be convinced by his mother or finance to do these basic tasks, per his fiance he hasnt been working because he cannot think clearly, he has been spending his time pacing around the apartment, smoking cigarettes, has been sleeping minimally, will wake up every hour to smoke cigarettes. He has been sharing with his fiance that the voices in his head have been trying to get to him and wont let him talk there will be moments when he is lucid. Fiance that his current affect and tone of voice is not consistent with his typical presentation. He will yell at the voices in his head. But there has been no anger externalized towards others. Psychiatric History: Outpatient: Has been meeting with a therapist regularly through [facility] Inpatient: [facility]- [facility] 2023, fernando jennings in 2021 (both in context of psychosis) Moved to [place] 1 years ago, established mental health treatment this summer, had psychotic episode in spring 2023 admitted through [facility], was there for 4-5 days, (was on a hold for grave disability), psychotic symptoms improved with medication, was discharged on haloperidol, and benztropine. 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 Suicide attempts: denies Self harm history: denies Violence Hx/Legal Hx: denies Substance use hx: marijuana use rare but precipitates acute psychotic symptoms, rare alcohol intake, nicotine daily Historical Psych Medications: Haloperidol, benztropine, clonidine, ingrezza, vraylar, trazodone, olanzapine- was prescribed outpatient up to 15 mg but at that dose didnt seem to improve symptoms, lamotrigine 100 mg- no clear benefit, clonidine, propranolol 10 mg Social Hx: Moved to [place] 1 years ago, His dad when he was 30 which was a huge loss. Family Hx: father addiction (lead to premature d/t medical comorbidities) Current Psychosocial Dynamics: Moved to [place] 1 years ago, lives with jahaira (been together for 12 years) and [place] brother, has had trouble consistently working. Course of treatment: Started on olanzapine 10 mg po qhs, trazodone 100 mg and 50 mg of benadryl and slept 2 hours his first night after admission, concern for polydipsea- was noted to be consuming more than 4800 ml of water a day, olanzapine increased to 15 mg at HS on 09/04, Tuesday, 09/05 he continued to present as anxious and agitated. Was having trouble finding words and would flurt things out at random, shit, fuck He escalted while visiting with his firoxann, olanzapine was further increase to 20 mg po qhs. Evening of 09/06 was observed screaming and cursing, having facial distortions with tick-like movements, Trends of elevated HR and Blood pressures. Olanzapine discontinue due to lack of efficacy, started on paliperidone. Todays Assessment States he feels fine today, slept well, states the tics havent been problematic (03/16), Ax4- to handle my tics. Per nurse he is still requesting excessive amounts of water, and if he was allowed he would be drinking water through out the day. No agitation this morning. Status: Suicide/Self Harm Risk: low Violence Risk: low Elopement Risk: High Fall risk: low - Medications: Paliperidone ER 6 mg po QHS Cogentin 2 mg po BID no meaningful improvement in TICs/dystonia- Recent PRNS: none recent - Side Effects: concern that Tics have worsened in severity since starting medication. AIMs: 3-muscle spasms in neck (does not appear to be consistent with TD) Dystonic reaction: Cervical dystonia- muscle spasms in neck, he additionally reports a history of tics but these symptoms worsened in the context of restarting antipsychotic medication and a Vmat 2 inhibitor - Review of Psychiatric Symptoms: Mood: denies depression Suicide/self-harm: denies Sleep: 8.5 hours, Appetite: states he ate breakfast, concern for over consumption of water Energy: tired I am always tired Anxiety: occasional anxiety Irritability: denies Homicidal/Anger: denies today Hallucinations/Paranoia: denies, states he is at his baseline level of thinking and the only concern he has for his mental health the tics Trauma symptoms: hx of trauma Symptoms related to substance withdrawal: endorses nicotine withdrawal, nicotine patch has been effective for cigarettes - Mental Status Evaluation - General Appearance: wearing green hospital scrubs, adequate hygiene. Eye contact: consistent with social norms Demeanor: guarded, does not appear fully aware of their surroundings Orientation: to person, place, time, situation Speech: Appropriate rate/rhythm, poverty of speech Psychomotor Activity: tense, agitated at times, Abnormal Body Movements: Cervical dystonia Gait: steady Mood: good Affect: blunted Suicidality: denies suicidal ideation Homicidally: denies Thought content: paranoia Thought process: disorganized/poverty of thought Thought perceptions: no perceptual disorder reported Memory: possible impairment Attention:/preoccupied Insight: poor, is not accepting having a mental health problem that requires treatment Judgment: limited - Review of Physical Systems: Denies malaise, other flu like symptoms Denies falls, fatigue, weakness, confusion, dizziness, memory loss Denies tingling/numbness, tremor Denies SOB, chest pain, palpitations, fainting Denies nausea, diarrhea, constipation Denies chronic pain All other systems reviewed negative Current Medical Problems: none noted Medical History Allergies: No known allergies Cardiac HX: Denies TBI Hx: denies Seizure Hx: denies [place] Hx: denies - Treatment Diagnoses Schizoaffective disorder psychogenic polydipsia (PPD)-exceeding 3 liters daily r/o substance induce psychosis from cannabis use Cervical dystonia r/o TD - Assessment Vishal is a 33 male who presents for further evaluation and treatment of schizoaffective disorder, dystonia, has historically been diagnosed with schizoaffective disorder. It appears that onset of psychotic symptoms did not correlate with substance use and his presentation is congruent with a primary psychotic disorder. He was administered his first dose of paliperidone last night, brighter affect today on assessment, remains guarded and in dental that he has mental health symptoms requiring hospitalization. Will continue paliperidone ER with aim that he can start DAILY before discharge. Great concern for risk of EPS, will monitor closely. Prn lorazepam and clonidine provided to address anxiety, agitation and tics. Discussed benefit of a usp plan of transitioning to an antipsychotic medication that can be administered as an DAILY as he struggles to take medication consistently which could be contributing to his recurrent hospitalizations for psychosis. It may be worth considering augmenting with a mood stabilizer like depakote at if insomnia persists despite medication changes made today. Marijuana appears to be a vinson contributing factor for psychotic decompensation, previous hospitalizations appear to correlate with marijuana use, and recommend total cessation of substances after discharge. - Safety risk: low risk of imminent self-harm, moderate risk of externalized violent behaviors due to severity of psychotic symptoms, high risk for elopement due to severity of psychotic symptoms Plan Continue lorazepam 1 mg up to BID for acute agitation Continue clonidine 0.1 mg prn TID for anxiety/tics Continue paliperidone ER 6 mg po qhs for acute psychosis Continue benztropine 2 mg po BID for dystonia Continue fluid restriction- no more than 4 pitchers of water a day (for a total fluid intake not to exceed 3200 ml) 5250 hold for grave disability Continue Benadryl q6 for EPS or insomnia Continue Q15 min checks Continue Groups/Milieu Engagement Discharge Plan: Has an appointment with a psychiatrist in [facility] on October 26, Has a follow up with psych PA on October 09, Jigar Granado vinson manager managed care, please contact for discharge or any other logistics Fiance would like to be an advocate for him for any related court/legal situations. Spent approximately 45 minutes reviewing records and test results, assessing and treatment planning, completing care coordination and documenting the encounter. Discussed risks, including possible adverse effects, and benefits of treatment recommendations including no treatment. Voice recognition software may have been used to dictate this note. There may be errors due to use of such software. Reporting of serious errors is appreciated. CODING VISIT-PSYCHIATRY Date of Service: Oct 09, 2024 Billing Provider: MARISSA MAJOR DNP Psych Common Visit Codes: [id number] INP/OBS CARE(Mod), [id number] INP/OBS CARE(High) MARISSA MAJOR DNP Oct 09, 2024 15:48
[2024-10-09] MEDS: loperamide 2mg capsule PO PRN (15:55)
[2024-10-09 19:00] VITALS: RESP 18; O2SAT 96
[2024-10-09 20:00] VITALS: BP 134/85; PULSE 120; RESP 18; TEMP 98.9; O2SAT 96
--- NOTE | 2024-10-10 06:04 | CARDIOLOGY REPORT ---
APPROVED REPORT EXAM: Comprehensive 2D, Doppler, and color-flow Echocardiogram. Patient Location: [facility] Heart Rate: 103 bpm Rhythm: SINUS TACHYCARDIA Indications ARRHYTHMIA Primary Teaching Assistant: NONE Previous echo: NONE 2D Dimensions RVDd 2.5 cm IVSd 0.9 (0.7-1.1cm) LVDd 4.9 cm PWd 1.1 (0.7-1.1cm) IVSs 1.1 (0.8-1.2cm) LVDs 3.3 (2.5-4.0cm) PWs 1.7 (0.8-1.2cm) LVOT Diameter 2.02 (1.8-2.4cm) LVEF(%) 60.3 (>50%) FS (%) 32.3 % SV 68.2 ml CO 7.2 L/min M-Mode Dimensions Left Atrium(MM) 3.43 (2.5-4.0cm) Aortic Root 2.85 (2.2-3.7cm) Aortic Cusp Exc 2.05 (1.5-2.0cm) Aortic Valve AoV Peak Master. 165.5 cm/s AoV VTI 25.3 cm AO Peak GR. 11.0 mmHg AO Mean GR. 6 mmHg LVOT VTI 24.87 cm LVOT Peak Master. 159.2 cm/s BRENDA(VTI)/BSA 3.14 cm2/m2 BRENDA (VTI) 3.14 cm2 Mitral Valve MV E Velocity 72.3 cm/s MV Peak Gr. 3 mmHg MV DECEL TIME 188 ms MV A Velocity 77.7 cm/s MV PHT 56 ms E/A Ratio 0.9 MVA (PHT) 3.93 cm2 MV VMax87.4 cm/s LEFT VENTRICLE Normal LV size and wall thickness. Overall systolic function is normal. LVEF is 65%. RIGHT VENTRICLE RV is normal size and function. ATRIA The left atrium size is normal. AORTIC VALVE Trileaflet AV appears normal without stenosis. No insufficiency. MITRAL VALVE Mild MV annular calcification without stenosis. Trace regurgitation. TRICUSPID VALVE TV appears structurally normal with trace regurgitation. PULMONIC VALVE Normal PV without stenosis, physiologic insufficiency. GREAT VESSELS The aortic root is normal in size. PERICARDIUM Normal pericardium. No effusion. Other Information Study Quality: Adequate Conclusion Normal LV size and wall thickness. Overall systolic function is normal. LVEF is 65%. RV is normal size and function. The left atrium size is normal. Trileaflet AV appears normal without stenosis. No insufficiency. Mild MV annular calcification without stenosis. Trace regurgitation. TV appears structurally normal with trace regurgitation. Normal pericardium. No effusion.
[2024-10-10 07:00] VITALS: RESP 18; O2SAT 98
[2024-10-10 08:00] VITALS: BP 120/87; PULSE 115; RESP 18; TEMP 98.9; O2SAT 98
--- NOTE | 2024-10-10 16:02 | PROGRESS NOTE ---
Progress Note Dictate Providers to CC ~ Antibiotic Ordered?: No Objective Vitals Vital Signs Date Time Temp Pulse Resp B/P (MAP) Pulse Ox O2 Delivery O2 Flow Rate FiO2 10/10/24 08:00 98.9 115 18 120/87 (98) 98 Room Air Problem\Assessment\Plan Problems/Diagnosis: (1) Cannabis abuse with psychotic disorder (2) Schizophrenia, acute Psychiatrist's Progress Note Notes FOLLOW UP Vishal Hernandez 33 M Date of : Admit date: 10/04/24 Current length of stay: 2 days Status: 5250 HPI: admitted voluntarily for Tics and psychotic symptoms. Tics/movent symptoms started returning 3 weeks ago (early September) at which time he started new mental health medication: Trazodone, Ingrezza, Vraylar. He has additionally developed gambling addiction- has gone to the [employer] three times in 2024 and will spend his whole paycheck. Shared that he thinks that he may have a porn/sex addiction. Recent psychotic symptoms appear to have worsened in the context of two incidences of THC use. Per fiance he is unable to care for himself, needs a time motion analyst caregiver to remind him to take his medication, bathe or eating- will have to be convinced by his mother or finance to do these basic tasks, per his fiance he hasnt been working because he cannot think clearly, he has been spending his time pacing around the apartment, smoking cigarettes, has been sleeping minimally, will wake up every hour to smoke cigarettes. He has been sharing with his fiance that the voices in his head have been trying to get to him and wont let him talk there will be moments when he is lucid. Monique that his current affect and tone of voice is not consistent with his typical presentation. He will yell at the voices in his head. But there has been no anger externalized towards others. Psychiatric History: Outpatient: Has been meeting with a therapist regularly through [facility] Inpatient: - [place] 2023, fernando jennings in 2021 (both in context of psychosis) Moved to [place] 1 years ago, established mental health treatment this summer, had psychotic episode in spring 2023 admitted through [facility], was there for 4-5 days, (was on a hold for grave disability), psychotic symptoms improved with medication, was discharged on haloperidol, and benztropine. 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 Suicide attempts: denies Self harm history: denies Violence Hx/Legal Hx: denies Substance use hx: marijuana use rare but precipitates acute psychotic symptoms, rare alcohol intake, nicotine daily Historical Psych Medications: Haloperidol, benztropine, clonidine, ingrezza, vraylar, trazodone, olanzapine- was prescribed outpatient up to 15 mg but at that dose didnt seem to improve symptoms, lamotrigine 100 mg- no clear benefit, clonidine, propranolol 10 mg Social Hx: Moved to [place] 1 years ago, His dad when he was 30 which was a huge loss. Family Hx: father addiction (lead to premature d/t medical comorbidities) Current Psychosocial Dynamics: Moved to [place] 1 years ago, lives with monique (been together for 12 years) and [place] brother, has had trouble consistently working. Course of treatment: Started on olanzapine 10 mg po qhs, trazodone 100 mg and 50 mg of benadryl and slept 2 hours his first night after admission, concern for polydipsea- was noted to be consuming more than 4800 ml of water a day, olanzapine increased to 15 mg at HS on 09/04, Tuesday, 09/05 he continued to present as anxious and agitated. Was having trouble finding words and would flurt things out at random, shit, fuck He escalted while visiting with his firoxann, olanzapine was further increase to 20 mg po qhs. Evening of 09/06 was observed screaming and cursing, having facial distortions with tick-like movements, Trends of elevated HR and Blood pressures. Olanzapine discontinued due to lack of efficacy, started on paliperidone. Todays Assessment Per nursing staff: Tics are still present, hungry, still focused on drinking lots of water (Asking staff frequently), per staff is no longer cussing and agitated. Talked to Fiance: no apparent psychotic thought process observable today, (observed some yesterday), states on their visit they were talking and thinking clearly. Was tracking paperwork that was being offered. The tic like movements were significantly less compared to the previous days. - Medications: Paliperidone ER 6 mg po QHS Cogentin 2 mg po BID no meaningful improvement in TICs/dystonia- Recent PRNS: Trazodone 50 mg - 10/09 QHS Bendadryl 50 mg - 08 QHS Nicotine Patch - QD - Side Effects: denies concerns AIMs: 0 No longer observing Dystonic reaction: on admission: Cervical dystonia- muscle spasms in neck, he additionally reports a history of tics but these symptoms worsened in the context of restarting antipsychotic medication and a Vmat 2 inhibitor - Review of Psychiatric Symptoms: Mood: denies depression, states he is in a good mood Suicide/self-harm: denies Sleep: 8.5 hours Appetite: states he ate breakfast, concern for over consumption of water Energy: tired I am always tired Anxiety: occasional anxiety Irritability: denies Homicidal/Anger: denies today Hallucinations/Paranoia: denies, states he is at his baseline level of thinking and the only concern he has for his mental health the tics Trauma symptoms: hx of trauma Symptoms related to substance withdrawal: endorses nicotine withdrawal, nicotine patch has been effective for cigarettes - Mental Status Evaluation - General Appearance: wearing green hospital scrubs, adequate hygiene. Eye contact: consistent with social norms Demeanor: pleasant Orientation: to person, place, time, situation Speech: Appropriate rate/rhythm, poverty of speech Psychomotor Activity: tense, agitated at times, Abnormal Body Movements: none observed Gait: steady Mood: good Affect: constricted (but smiled) Suicidality: denies suicidal ideation Homicidally: denies Thought content: wnl Thought process: logical Thought perceptions: no perceptual disorder reported Memory: possible impairment Attention:/preoccupied Insight: fair- accepting of treatment plan to take long acting injection medication Judgment: good - Review of Physical Systems: Denies malaise, other flu like symptoms Denies falls, fatigue, weakness, confusion, dizziness, memory loss Denies tingling/numbness, tremor Denies SOB, chest pain, palpitations, fainting Denies nausea, diarrhea, constipation Denies chronic pain All other systems reviewed negative Current Medical Problems: none noted Medical History Allergies: No known allergies Cardiac HX: Denies TBI Hx: denies Seizure Hx: denies [place] Hx: denies - Treatment Diagnoses Schizoaffective disorder psychogenic polydipsia (PPD)-exceeding 3 liters daily r/o substance induce psychosis from cannabis use Cervical dystonia r/o TD - Assessment Vishal is a 33 male who presents for further evaluation and treatment of schizoaffective disorder, dystonia, has historically been diagnosed with schizoaffective disorder. It appears that onset of psychotic symptoms did not correlate with substance use and his presentation is congruent with a primary psychotic disorder. He continues to demonstrate improvements in thought process, emotional engagement including sociability and affect since starting paliperidone. Will continue paliperidone ER, he is agree able to DAILY, will administer on tuesday before discharge. Great concern for risk of EPS, will monitor closely. Prn lorazepam and clonidine provided to address anxiety, agitation and tics. Discussed benefit of a alf plan of transitioning to an antipsychotic medication that can be administered as an DAILY as he struggles to take medication consistently which could be contributing to his recurrent hospitalizations for psychosis. Marijuana appears to be a vinson contributing factor for psychotic de compensation, previous hospitalizations appear to correlate with marijuana use, and recommend total cessation of substances after discharge. - Safety risk: low risk of imminent self-harm, low risk of externalized violent behaviors Plan TUESDAY: start invega sustenna 234 mg INJ Q (loading dose) then one week later 156 mg on 10/19 then 11/17/11 - 117 mg INJ Qmonth Continue lorazepam 1 mg up to BID for acute agitation Continue clonidine 0.1 mg prn TID for anxiety/tics Continue paliperidone ER 6 mg po qhs for acute psychosis (will be discontinued after DAILY administered) Continue benztropine 2 mg po BID for dystonia Continue fluid restriction- no more than 4 pitchers of water a day (for a total fluid intake not to exceed 3200 ml) 5250 hold for grave disability Continue Benadryl q6 for EPS or insomnia Continue Q15 min checks Continue Groups/Milieu Engagement Discharge Plan: plan for tuesday discharge after administration of DAILY Has an appointment with a psychiatrist in [facility] on October 26, Has a follow up with psych BENJAMÍN on October 09, Jigar Granado vinson patient centered care specialist, please contact for discharge or any other logistics Monique would like to be an advocate for him for any related court/legal situations. Would like help completing paperwork for disability Spent approximately 45 minutes reviewing records and test results, assessing and treatment planning, completing care coordination and documenting the encounter. Discussed risks, including possible adverse effects, and benefits of treatment recommendations including no treatment. Voice recognition software may have been used to dictate this note. There may be errors due to use of such software. Reporting of serious errors is appreciated. CODING VISIT-PSYCHIATRY Date of Service: Oct 10, 2024 Billing Provider: MARISSA MAJOR DNP Psych Common Visit Codes: [id number] INP/OBS CARE(Mod) MARISSA MAJOR DNP Oct 10, 2024 16:02
--- NOTE | 2024-10-10 17:01 | PROGRESS NOTE ---
Daily Progress Note Providers to CC ~ Antibiotic Timeout Antibiotic Ordered?: No Subjective No new complaints. Patient is resting comfortably Objective Vital Signs Date Time Temp Pulse Resp B/P (MAP) Pulse Ox O2 Delivery O2 Flow Rate FiO2 10/10/24 08:00 98.9 115 18 120/87 (98) 98 Room Air Awake cooperative in no acute distress HEENT normocephalic atraumatic extraocular movements are intact Neck supple, no JVD Chest: Clear to auscultation, no wheezes crackles or rhonchi Heart: Regular rate rhythm, no murmur or gallop rub Abdomen: Soft, nontender, no organomegaly Extremities: No cyanosis clubbing or edema Neuro exam nonfocal. Other Results Medications reviewed Problem\Assessment\Plan 33 years old male with a history of schizophrenia, has been admitted voluntarily for tics and psychotic symptoms. Patient reported that his symptoms returned three weeks prior to admission i.e. in early September. Patient had started a new medication 1. Schizophrenia, dystonia/tics: Continue treat per psych recommendations. Patient does not have any acute medical issues. I will sign off. Please contact the hospitalist team for any change in patient's medical condition. Hospitalist team will continue to follow the patient per protocol. Date of Service: Oct 10, 2024 Billing Provider: IAN LUQUE MD Common Visit Codes: [id number] INP/OBS CARE(LOW) IAN LUQUE MD Oct 10, 2024 17:00
[2024-10-10 19:00] VITALS: RESP 16; O2SAT 96
[2024-10-10 19:43] VITALS: PULSE 108; RESP 16; O2SAT 97
[2024-10-10] MEDS: ipratropium/albuterol 3ml nebule NEB PRN (19:48)
[2024-10-10 19:49] VITALS: PULSE 102; RESP 16
[2024-10-10 20:00] VITALS: BP 120/81; PULSE 100; RESP 16; TEMP 98.1; O2SAT 96
[2024-10-11 07:00] VITALS: RESP 16; O2SAT 97
[2024-10-11 08:00] VITALS: BP 126/83; PULSE 106; RESP 16; TEMP 99.8; O2SAT 97
--- NOTE | 2024-10-11 17:16 | PROGRESS NOTE ---
Progress Note Dictate Providers to CC ~ Antibiotic Ordered?: No Objective Vitals Vital Signs Date Time Temp Pulse Resp B/P (MAP) Pulse Ox O2 Delivery O2 Flow Rate FiO2 10/11/24 08:00 99.8 106 16 126/83 (97) 97 Room Air 10/10/24 19:49 0.0 10/10/24 19:43 21 Problem\Assessment\Plan Problems/Diagnosis: (1) Cannabis abuse with psychotic disorder (2) Schizophrenia, acute Psychiatrist's Progress Note Notes FOLLOW UP Vishal Hernandez 33 M Date of : Admit date: 10/04/24 Current length of stay: 8 days Status: 5250- signed in VOL today HPI: admitted voluntarily for Tics and psychotic symptoms. Tics/movent symptoms started returning 3 weeks ago (early September) at which time he started new mental health medication: Trazodone, Ingrezza, Vraylar. He has additionally developed gambling addiction- has gone to the [employer] three times in 2024 and will spend his whole paycheck. Shared that he thinks that he may have a porn/sex addiction. Recent psychotic symptoms appear to have worsened in the context of two incidences of THC use. Per fiance he is unable to care for himself, needs a dish machine operator caregiver to remind him to take his medication, bathe or eating- will have to be convinced by his mother or finance to do these basic tasks, per his fiance he hasnt been working because he cannot think clearly, he has been spending his time pacing around the apartment, smoking cigarettes, has been sleeping minimally, will wake up every hour to smoke cigarettes. He has been sharing with his fiance that the voices in his head have been trying to get to him and wont let him talk there will be moments when he is lucid. Fiance that his current affect and tone of voice is not consistent with his typical presentation. He will yell at the voices in his head. But there has been no anger externalized towards others. Psychiatric History: Outpatient: Has been meeting with a therapist regularly through [facility] Inpatient: - [place] 2023, [facility] in 2021 (both in context of psychosis) Moved to [place] 1 years ago, established mental health treatment this summer, had psychotic episode in spring 2023 admitted through [facility], was there for 4-5 days, (was on a hold for grave disability), psychotic symptoms improved with medication, was discharged on haloperidol, and benztropine. 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 Suicide attempts: denies Self harm history: denies Violence Hx/Legal Hx: denies Substance use hx: marijuana use rare but precipitates acute psychotic symptoms, rare alcohol intake, nicotine daily Historical Psych Medications: Haloperidol, benztropine, clonidine, ingrezza, vraylar, trazodone, olanzapine- was prescribed outpatient up to 15 mg but at that dose didnt seem to improve symptoms, lamotrigine 100 mg- no clear benefit, clonidine, propranolol 10 mg Social Hx: Moved to [place] 1 years ago, His dad when he was 30 which was a huge loss. Family Hx: father addiction (lead to premature d/t medical comorbidities) Current Psychosocial Dynamics: Moved to [place] 1 years ago, lives with jahaira (been together for 12 years) and fiances brother, has had trouble consistently working. Course of treatment: Started on olanzapine 10 mg po qhs, trazodone 100 mg and 50 mg of benadryl and slept 2 hours his first night after admission, concern for polydipsea- was noted to be consuming more than 4800 ml of water a day, olanzapine increased to 15 mg at HS on 09/04, Tuesday, 09/05 he continued to present as anxious and agitated. Was having trouble finding words and would flurt things out at random, shit, fuck He escalted while visiting with his fiance, olanzapine was further increase to 20 mg po qhs. Evening of 09/06 was observed screaming and cursing, having facial distortions with tick-like movements, Trends of elevated HR and Blood pressures. Olanzapine discontinued due to lack of efficacy, started on paliperidone which has lead to further improvement in psychotic symptoms. Todays Assessment Per nursing staff: Tics are still present, hungry, still focused on drinking lots of water (Asking staff frequently), per staff is no longer cussing and agitated. Talked to Fiance: no apparent psychotic thought process observable today, (observed some yesterday), states on their visit they were talking and thinking clearly. Was tracking paperwork that was being offered. The tic like movements were significantly less compared to the previous days. - Medications: Paliperidone ER 6 mg po QHS Cogentin 2 mg po BID no meaningful improvement in TICs/dystonia- Recent PRNS: Trazodone 50 mg - 10/09 QHS Bendadryl 50 mg - 10/09 QHS Nicotine Patch - QD - Side Effects: denies concerns AIMs: 0 No longer observing Dystonic reaction: on admission: Cervical dystonia- muscle spasms in neck, he additionally reports a history of tics but these symptoms worsened in the context of restarting antipsychotic medication and a Vmat 2 inhibitor - Review of Psychiatric Symptoms: Mood: denies depression, states he is in a good mood Suicide/self-harm: denies Sleep: 8.5 hours Appetite: states he ate breakfast, concern for over consumption of water Energy: tired I am always tired Anxiety: occasional anxiety Irritability: denies Homicidal/Anger: denies today Hallucinations/Paranoia: denies, states he is at his baseline level of thinking and the only concern he has for his mental health the tics Trauma symptoms: hx of trauma Symptoms related to substance withdrawal: endorses nicotine withdrawal, nicotine patch has been effective for cigarettes - Mental Status Evaluation - General Appearance: wearing green hospital scrubs, adequate hygiene. Eye contact: consistent with social norms Demeanor: pleasant Orientation: to person, place, time, situation Speech: Appropriate rate/rhythm, poverty of speech Psychomotor Activity: tense, agitated at times, Abnormal Body Movements: none observed Gait: steady Mood: good Affect: constricted (but smiled) Suicidality: denies suicidal ideation Homicidally: denies Thought content: wnl Thought process: logical Thought perceptions: no perceptual disorder reported Memory: possible impairment Attention:/preoccupied Insight: fair- accepting of treatment plan to take long acting injection medication Judgment: good - Review of Physical Systems: Denies malaise, other flu like symptoms Denies falls, fatigue, weakness, confusion, dizziness, memory loss Denies tingling/numbness, tremor Denies SOB, chest pain, palpitations, fainting Denies nausea, diarrhea, constipation Denies chronic pain All other systems reviewed negative Current Medical Problems: none noted Medical History Allergies: No known allergies Cardiac HX: Denies TBI Hx: denies Seizure Hx: denies [place] Hx: denies - Treatment Diagnoses Schizoaffective disorder psychogenic polydipsia (PPD)-exceeding 3 liters daily r/o substance induce psychosis from cannabis use Cervical dystonia r/o TD - Assessment Vishal is a 33 male who presents for further evaluation and treatment of schizoaffective disorder, dystonia, has historically been diagnosed with schizoaffective disorder. It appears that onset of psychotic symptoms did not correlate with substance use and his presentation is congruent with a primary psychotic disorder. He continues to demonstrate improvements in thought process, emotional engagement including sociability and affect since starting paliperidone. Will continue paliperidone ER, he is agree able to DAILY, will administer on tuesday before discharge. Great concern for risk of EPS, will monitor closely. Prn lorazepam and clonidine provided to address anxiety, agitation and tics. Discussed benefit of a buttermaker continuous churn plan of transitioning to an antipsychotic medication that can be administered as an DAILY as he struggles to take medication consistently which could be contributing to his recurrent hospitalizations for psychosis. Marijuana appears to be a vinson contributing factor for psychotic decompensation, previous hospitalizations appear to correlate with marijuana use, and recommend total cessation of substances after discharge. - Safety risk: low risk of imminent self-harm, low risk of externalized violent behaviors Plan TUESDAY: start invega sustenna 234 mg INJ Q (loading dose) then one week later 156 mg on 10/19 then 11/17/11 - 117 mg INJ Qmonth Continue lorazepam 1 mg up to BID for acute agitation Continue clonidine 0.1 mg prn TID for anxiety/tics Continue paliperidone ER 6 mg po qhs for acute psychosis (will be discontinued after DAILY administered) Continue benztropine 2 mg po BID for dystonia Continue fluid restriction- no more than 4 pitchers of water a day (for a total fluid intake not to exceed 3200 ml) 5250 hold for grave disability Continue Benadryl q6 for EPS or insomnia Continue Q15 min checks Continue Groups/Milieu Engagement Discharge Plan: plan for tuesday discharge after administration of DAILY CODING VISIT-PSYCHIATRY Date of Service: Oct 11, 2024 Billing Provider: MARISSA MAJOR DNP Psych Common Visit Codes: [id number] INP/OBS CARE(Mod) MARISSA MAJOR DNP Oct 11, 2024 17:16
[2024-10-11 19:00] VITALS: RESP 18; O2SAT 96
[2024-10-11 20:00] VITALS: BP 116/60; RESP 18; TEMP 98.2; O2SAT 96
[2024-10-12 07:00] VITALS: RESP 16; O2SAT 99
[2024-10-12 07:46] VITALS: BP 121/77; PULSE 100; RESP 16; TEMP 98.9; O2SAT 99
[2024-10-12] MEDS: paliperidone palmitate inj 234 MG/1.5 ML SYRINGE IM ONE (08:42)
[2024-10-12] MEDS ORDERED: TRAZ-251 PO (09:18)
[2024-10-12] MEDS ORDERED: COG1T PO (09:18)
[2024-10-12] MEDS ORDERED: CLON0.1T2 PO (09:18)
[2024-10-12] MEDS ORDERED: PALI156D IM (09:21)
--- NOTE | 2024-10-12 18:33 | DISCHARGE SUMMARY ---
Discharge Summary Providers to CC ~ Discharge Summary Admission Diagnosis: psychosis nos Hospital Course DATE OF ADMISSION: DATE OF DISCHARGE: Discharge Diagnosis\Comment: in partial remisson Operations\Procedures: none Consultants: none Complications: none Condition on DC: Stable 2 or more antipsychotic used: No 2/more antipsychotic addressed: No Does Patient smoke: Yes Smoking education given.: Yes Discharge Summary: Discharge Vishal Hernandez 33 M Date of : Admit date: 10/04/24 Current length of stay: 11 days Status: 5250- signed in VOL today HPI: admitted voluntarily for Tics and psychotic symptoms. Tics/movent symptoms started returning 3 weeks ago (early September) at which time he started new mental health medication: Trazodone, Ingrezza, Vraylar. He has additionally developed gambling addiction- has gone to the [employer] three times in 2024 and will spend his whole paycheck. Shared that he thinks that he may have a porn/sex addiction. Recent psychotic symptoms appear to have worsened in the context of two incidences of THC use. Per fiance he is unable to care for himself, needs a [employer] caregiver to remind him to take his medication, bathe or eating- will have to be convinced by his mother or finance to do these basic tasks, per his fiance he hasnt been working because he cannot think clearly, he has been spending his time pacing around the apartment, smoking cigarettes, has been sleeping minimally, will wake up every hour to smoke cigarettes. He has been sharing with his fiance that the voices in his head have been trying to get to him and wont let him talk there will be moments when he is lucid. Fiance that his current affect and tone of voice is not consistent with his typical presentation. He will yell at the voices in his head. But there has been no anger externalized towards others. Substance use hx: marijuana use rare but precipitates acute psychotic symptoms, rare alcohol intake, nicotine daily Historical Psych Medications: Haloperidol, benztropine, clonidine, ingrezza, vraylar, trazodone, olanzapine- was prescribed outpatient up to 15 mg but at that dose didnt seem to improve symptoms, lamotrigine 100 mg- no clear benefit, clonidine, propranolol 10 mg Social Hx: Moved to [place] 1 years ago, His dad when he was 30 which was a huge loss. Family Hx: father addiction (lead to premature d/t medical comorbidities) Current Psychosocial Dynamics: Moved to [place] 1 years ago, lives with monique (been together for 12 years) and [place] brother, has had trouble consistently working. Course of treatment: Started on olanzapine 10 mg po qhs, trazodone 100 mg and 50 mg of benadryl and slept 2 hours his first night after admission, concern for polydipsea- was noted to be consuming more than 4800 ml of water a day, olanzapine increased to 15 mg at HS on 09/04, Tuesday, 09/05 he continued to present as anxious and agitated. Was having trouble finding words and would flurt things out at random, shit, fuck He escalted while visiting with his monique, olanzapine was further increase to 20 mg po qhs. Evening of 09/06 was observed screaming and cursing, having facial distortions with tick-like movements, Trends of elevated HR and Blood pressures. Olanzapine discontinued due to lack of efficacy, started on paliperidone which has lead to further improvement in psychotic symptoms. Todays Assessment Engaged in the milieu, is positive and hopeful about returning home today, Talked to Monique: no apparent psychotic thought process observable today, states on their visit they were talking and thinking clearly. Was tracking paperwork that was being offered. The tic like movements were significantly less compared to the previous days. - Medications: Paliperidone ER 6 mg po QHS Cogentin 2 mg po BID no meaningful improvement in TICs/dystonia- Recent PRNS: Trazodone 50 mg - 10/09 QHS Bendadryl 50 mg - 10/09 QHS Nicotine Patch - QD - Side Effects: denies concerns AIMs: 0 No longer observing Dystonic reaction: on admission: Cervical dystonia- muscle spasms in neck, he additionally reports a history of tics but these symptoms worsened in the context of restarting antipsychotic medication and a Vmat 2 inhibitor - Review of Psychiatric Symptoms: Mood: denies depression, states he is in a good mood Suicide/self-harm: denies Sleep: 8.5 hours Appetite: states he ate breakfast, concern for over consumption of water Energy: improved Anxiety: occasional anxiety Irritability: denies Homicidal/Anger: denies today Hallucinations/Paranoia: denies, states he is at his baseline level of thinking and the only concern he has for his mental health the tics Trauma symptoms: hx of trauma Symptoms related to substance withdrawal: endorses nicotine withdrawal, nicotine patch has been effective for cigarettes - Mental Status Evaluation - General Appearance: wearing green hospital scrubs, adequate hygiene. Eye contact: consistent with social norms Demeanor: pleasant Orientation: to person, place, time, situation Speech: Appropriate rate/rhythm, poverty of speech Psychomotor Activity: wnl Abnormal Body Movements: none observed Gait: steady Mood: good Affect: constricted (but smiled) Suicidality: denies suicidal ideation Homicidally: denies Thought content: wnl Thought process: logical Thought perceptions: no perceptual disorder reported Memory: possible impairment Attention: appears intact Insight: fair- accepting of treatment plan to take long acting injection medication Judgment: good - - Diagnoses Schizoaffective disorder psychogenic polydipsia (PPD)-exceeding 3 liters daily r/o substance induce psychosis from cannabis use Cervical dystonia r/o TD - Discharge Assessment Vishal is a 33 male who presented evaluation and treatment of schizoaffective disorder, dystonia, It appears that onset of psychotic symptoms did not correlate with substance use and his presentation is congruent with a primary psychotic disorder. Will continue paliperidone ER, he is agreeable to DAILY, administered, follow up coverage scheduled and prescribed, in coordination with outpatient provider- [facility]. Discussed benefit of a crystal evaluator plan of transitioning to an antipsychotic medication that can be administered as an DAILY as he struggles to take medication consistently which could be contributing to his recurrent hospitalizations for psychosis.Great concern for risk of EPS, will monitor closely, benztropine scheduled and clonidine provided to address anxiety, agitation and tics. Marijuana appears to be a vinson contributing factor for psychotic decompensation, previous hospitalizations appear to correlate with marijuana use, and recommend total cessation of substances after discharge. Prognosis: Fair to good, contingent on adherence to treatment plan, medication compliance, and outpatient follow-up. - Safety risk: low risk of imminent self-harm, low risk of externalized violent behaviors Discharge Plan: TUESDAY: start invega sustenna 234 mg INJ Q (loading dose) then one week later 156 mg on 10/19 then 11/17/11 - 117 mg INJ Qmonth scripts sent Continue benztropine cogentin 2 mg BID Continue trazodone 100 mg po qhs Continue clonidine 0.1 mg as needed for anxiety/tics Safety plan complete, reviewed and in the chart Follow up psychiatric medication appointment on october 15 at [facility] Follow up appointment psychiatrist at [facility] on October 26 w/Dr. Person 61 Follow up appointment with outpatient therapist- Deb through [facility]- Please refrain elicit substances including marijuana Home with Finance Vannesa Spent approximately 60 minutes reviewing records and test results, assessing and treatment planning, completing care coordination and documenting the encounter. Discussed risks, including possible adverse effects, and benefits of treatment recommendations including no treatment. Voice recognition software may have been used to dictate this note. There may be errors due to use of such software. Reporting of serious errors is appreciated. *Problems/Diagnosis: (1) Cannabis abuse with psychotic disorder Status: Resolved (2) Schizophrenia, acute Status: Chronic Total Time Spent on D/C: > 30 Minutes CODING VISIT-PSYCHIATRY Date of Service: Oct 12, 2024 Billing Provider: MARISSA MAJOR DNP Psych Common Visit Codes: [id number] DISCH DAY >30min MARISSA MAJOR DNP Oct 12, 2024 18:32
[2024-11-06] MEDS ORDERED: OLANZapine 5mg rapidly disint. tablet PO SCH (21:00)
== END 2024-10-12 10:45 | disposition home or self-care (01) | DRG 750 ==
LOC: ADULT MH 21:05
PROVIDERS: ADMIT Psychiatry & Neurology Psychiatry; ATTEND Psychiatry & Neurology Psychiatry
PROC: GZHZZZZ Group Psychotherapy (ICD-10-PCS; principal; 2024-10-04)
PROC: GZ51ZZZ Individual Psychotherapy, Behavioral (ICD-10-PCS; 2024-10-06)
DX: F25.9 Schizoaffective disorder, unspecified (principal); F12.159 Cannabis abuse with psychotic disorder, unspecified; F31.9 Bipolar disorder, unspecified; F95.9 Tic disorder, unspecified; F41.9 Anxiety disorder, unspecified; G24.3 Spasmodic torticollis; G47.00 Insomnia, unspecified; R63.1 Polydipsia; R00.0 Tachycardia, unspecified
CPT/HCPCS: 36415; 71045; 80053; 80061; 80305; 81003; 82550; 83036; 83690; 83735; 84100; 84443; 84484; 85025; 87081; 93005; 93306; 94640; 94760; 99285; J2426; Q0161; Q0163; Q0177